=== PATIENT | male | born 1955 | race Caucasian/White ===

== ENCOUNTER 2024-07-12 18:16 | Inpatient (IN) | payer OTHER ==
[~2024-07-12] VITALS: Ht 175.3 cm; Wt 70.9 kg
[2024-07-12 19:21] LABS: BASOPHILS % 0.8 % (0.0-2.0); EOSINOPHILS % 4.2 % (0.0-5.0); HEMATOCRIT. 33.5 % (42.0-52.0); HEMOGLOBIN. 10.4 g/dL (14.0-18.0); LYMPHOCYTES % 14.9 % (20.0-50.0); MEAN CORPUSCULAR HEMOGLOBIN 28.7 pg (28.0-32.0); MEAN CORPUSCULAR HGB CONC 31.1 g/dL (31.0-37.0); MEAN CORPUSCULAR VOLUME 92.1 fL (80.0-94.0); MEAN PLATELET VOLUME 8.1 fl (7.4-10.4); MONOCYTES % 12.8 % (2.0-8.0); NEUTROPHILS % 67.3 % (40.0-76.0); PLATELET 203 x1000/uL (130-400); RED BLOOD CELL COUNT 3.63 mill/uL (4.7-6.1); RED CELL DISTRIBUTION WIDTH 19.1 % (11.6-14.6); WHITE BLOOD COUNT 4.1 x1000/uL (4.5-11.0)
[2024-07-12 19:25] LABS: CHLORIDE 118 mEq/L (98-107); POTASSIUM 4.6 mEq/L (3.5-5.1); SODIUM 143 mEq/L (136-145)
[2024-07-12 19:26] LABS: CALCIUM 8.5 mg/dL (8.7-10.4); CARBON DIOXIDE 18 mEq/L (21-32); INR 1.1; PROTHROMBIN TIME 11.7 sec (9.6-11.0)
[2024-07-12 19:31] LABS: CREATININE 2.3 mg/dL (0.6-1.3); GLUCOSE 93 mg/dL (70-105); UREA NITROGEN BLOOD 55 mg/dL (9-23)
[2024-07-12 19:33] LABS: ALANINE AMINOTRANSFERASE 14 IU/L (10-49); ALBUMIN 3.5 g/dL (3.2-4.8); ASPARTATE AMINOTRANSFERASE 22 IU/L (<34); BILIRUBIN DIRECT 0.2 mg/dL (<=3.0); BILIRUBIN TOTAL 0.5 mg/dL (0.1-1.0); CREATINE KINASE 117 IU/L (46-171); PROTEIN TOTAL 5.9 g/dL (6.0-8.3); TROPONIN I HIGH SENSITIVITY 45 ng/L (3.0-53)
[2024-07-12 19:59] LABS: ETHANOL BLOOD < 10 mg/dL (<10)
[2024-07-12] MEDS: HYDRALAZINE 20MG/ML VIAL IV ONE (20:12)
[2024-07-12] MEDS: SODIUM CHLORIDE 0.9% 250 ML IV ONE (20:14)
[2024-07-12 22:03] LABS: CLARITY URINE CLOUDY (CLEAR); COLOR URINE YELLOW (YELLOW); GLUCOSE URINE 2+ (NEGATIVE); KETONES URINE NEGATIVE (NEGATIVE); LEUKOCYTE ESTERASE URINE NEGATIVE (NEGATIVE); NITRITE URINE NEGATIVE (NEGATIVE); OCCULT BLOOD URINE NEGATIVE (NEGATIVE); PROTEIN URINE 4+ (NEGATIVE)
[2024-07-12 22:10] LABS: *AMPHETAMINES SCREEN URINE NEGATIVE (NEGATIVE); *BARBITURATES SCREEN URINE NEGATIVE (NEGATIVE); *BENZODIAZEPINES SCREEN URINE NEGATIVE (NEGATIVE); *COCAINE SCREEN URINE NEGATIVE (NEGATIVE); METHADONE URINE SCREEN NEGATIVE (NEGATIVE)
[2024-07-12 22:11] LABS: CANNABINOID URINE SCREEN NEGATIVE (NEGATIVE); ECSTASY MDMA SCREEN URINE NEGATIVE (NEGATIVE); OPIATES URINE SCREEN NEGATIVE (NEGATIVE); PHENCYCLIDINE URINE SCREEN NEGATIVE (NEGATIVE)
[2024-07-12 22:12] LABS: BACTERIA URINE 1+; RBC URINE 0-2 /hpf (0-2); SQUAMOUS EPITHELIAL CELL URINE 1+ /lpf (RARE/1+); WBC URINE 0-2 /hpf (0-2)
[2024-07-13] VITALS (11 sets, daily range): BP systolic 149–183; BP diastolic 58–84; PULSE 60–87; RESP 16–20; TEMP 35.8362–37.00296; O2SAT 98–100
[2024-07-13] MEDS: IOHEXOL-350 100 ML BOTTLE ONE (00:11)
[2024-07-13] MEDS: DEXT 5%/0.45% NACL 1000ML 1,000 ML IV SCH (01:15)
[2024-07-13] MEDS ORDERED: DEXTROSE 50% WATER 50ML SYRINGE IV PRN (01:15)
[2024-07-13] MEDS ORDERED: ATROPINE SULFATE 1MG/10ML SYR IV PRN (02:45)
[2024-07-13] MEDS: BLOOD SUGAR DIAGNOSTIC STRIP TEST SCH (04:11)
[2024-07-13] MEDS: HYDRALAZINE 20MG/ML VIAL IV PRN (04:45)
[2024-07-13] MEDS: FUROSEMIDE 40MG/4ML VIAL IVP SCH ×2 (05:36→14:13)
[2024-07-13] MEDS: HYDRALAZINE HCL 25MG TABLET PO SCH (05:56)
[2024-07-13 06:04] LABS: BG BASE EXCESS -12.1 mmol/L (-2.0-3.0); BG CARBOXYHEMOGLOBIN 0.1 % (0.5-1.5); BG DEOXYHEMOGLOBIN 0.7 % (0.0-5.0); BG FRACTION INSPIRED OXYGEN 40; BG HCO3 ACT 14.2 mmol/L (21.0-28.0); BG METHEMOGLOBIN 0.3 % (0.5-1.5); BG OXYGEN SATURATION 99.3 % (94.0-98.0); BG OXYHEMOGLOBIN 98.9 % (94.0-98.0); BG PCO2 33.8 mmHg (35.0-48.0); BG PH 7.241 (7.350-7.450); BG PO2 181.1 mmHg (83.0-108.0); BG SAMPLE SITE RIGHT RADIAL; BG TOTAL HEMOGLOBIN 10.6 g/dL (13.5-17.5); BG VENT MODE NASAL CANNULA
[2024-07-13] MEDS: SODIUM BICARBONATE 100 MEQ in DEXTROSE 5% WATER 900 ML IV SCH (07:12)
[2024-07-13] MEDS: SODIUM BICARBONATE 8.4% 50MEQ/50ML SYR IV NR ×2 (07:12→18:41)
[2024-07-13] MEDS: HEPARIN 5000 UNITS/ML VIAL SUBCUT SCH (09:55)
[2024-07-13] MEDS: PANTOPRAZOLE 40MG DR TABLET PO SCH (09:56)
[2024-07-13 13:17] LABS: BG BASE EXCESS -11.5 mmol/L (-2.0-3.0); BG CARBOXYHEMOGLOBIN 0.1 % (0.5-1.5); BG DEOXYHEMOGLOBIN 1.2 % (0.0-5.0); BG FRACTION INSPIRED OXYGEN 36; BG HCO3 ACT 15.5 mmol/L (21.0-28.0); BG METHEMOGLOBIN 0.3 % (0.5-1.5); BG OXYGEN SATURATION 98.8 % (94.0-98.0); BG OXYHEMOGLOBIN 98.4 % (94.0-98.0); BG PCO2 38.9 mmHg (35.0-48.0); BG PH 7.218 (7.350-7.450); BG PO2 147.5 mmHg (83.0-108.0); BG SAMPLE SITE RIGHT RADIAL; BG TOTAL HEMOGLOBIN 10.8 g/dL (13.5-17.5); BG VENT MODE NASAL CANNULA
[2024-07-13 13:23] LABS: HEMATOCRIT. 31.7 % (42.0-52.0); MEAN CORPUSCULAR HEMOGLOBIN 28.8 pg (28.0-32.0); MEAN CORPUSCULAR HGB CONC 31.5 g/dL (31.0-37.0); MEAN CORPUSCULAR VOLUME 91.4 fL (80.0-94.0); MEAN PLATELET VOLUME 8.1 fl (7.4-10.4); PLATELET 182 x1000/uL (130-400); RED BLOOD CELL COUNT 3.47 mill/uL (4.7-6.1); RED CELL DISTRIBUTION WIDTH 18.8 % (11.6-14.6); WHITE BLOOD COUNT 5.7 x1000/uL (4.5-11.0)
[2024-07-13 13:24] LABS: DIFFERENTIAL COMMENT 1
[2024-07-13 13:31] LABS: CARBON DIOXIDE 16 mEq/L (21-32); CHLORIDE 116 mEq/L (98-107); POTASSIUM 4.1 mEq/L (3.5-5.1); SODIUM 144 mEq/L (136-145)
[2024-07-13 13:32] LABS: CALCIUM 8.9 mg/dL (8.7-10.4)
[2024-07-13 13:36] LABS: CREATININE 2.3 mg/dL (0.6-1.3); GLUCOSE 159 mg/dL (70-105); IRON 32 ug/dL (65-175)
[2024-07-13 13:37] LABS: TRIGLYCERIDE 68 mg/dL (0-150); UREA NITROGEN BLOOD 59 mg/dL (9-23); VITAMIN B12 SERUM 1530 pg/mL (211-911)
[2024-07-13 13:38] LABS: LDL CHOLESTEROL 37 mg/dL (5-100)
[2024-07-13 13:39] LABS: CHOLESTEROL 113 mg/dL (<200); HDL CHOLESTEROL 55 mg/dL (>55); TOTAL IRON BINDING CAPACITY 156 ug/dl (250-425)
[2024-07-13 13:40] LABS: THYROID STIMULATING HORMONE 2.28 uIU/mL (0.55-4.78)
[2024-07-13] MEDS: ASPIRIN 81MG TABLET PO SCH (13:45)
[2024-07-13] MEDS: THIAMINE HCL 200 MG in SODIUM CHLORIDE 0.9% 98 ML IV SCH (13:55)
[2024-07-13] MEDS: CEFTRIAXONE 1GM/50ML 50 ML IV SCH (13:55)
[2024-07-13] MEDS: ATORVASTATIN CALCIUM 40MG TABLET PO SCH (20:39)
[2024-07-13 21:37] LABS: AMMONIA 27 uMol/L (<32)
[2024-07-13] MEDS: IPRATROPIUM/ALBUTEROL 0.5-3(2.5)MG/3ML NEB HHN SCH (21:41)
[2024-07-14] VITALS (17 sets, daily range): BP systolic 135–179; BP diastolic 67–89; PULSE 72–98; RESP 16–20; TEMP 36.114–36.6696; O2SAT 95–100
[2024-07-14 06:35] LABS: POTASSIUM 3.6 mEq/L (3.5-5.1)
[2024-07-14 06:36] LABS: CALCIUM 8.9 mg/dL (8.7-10.4)
[2024-07-14 06:41] LABS: CREATININE 2.3 mg/dL (0.6-1.3)
[2024-07-14 06:56] LABS: HEMOGLOBIN. 9.4 g/dL (14.0-18.0); MEAN CORPUSCULAR HEMOGLOBIN 29.7 pg (28.0-32.0); MEAN CORPUSCULAR HGB CONC 33.5 g/dL (31.0-37.0); MEAN CORPUSCULAR VOLUME 88.6 fL (80.0-94.0); PLATELET 177 x1000/uL (130-400); RED BLOOD CELL COUNT 3.16 mill/uL (4.7-6.1); RED CELL DISTRIBUTION WIDTH 18.2 % (11.6-14.6); WHITE BLOOD COUNT 6.5 x1000/uL (4.5-11.0)
[2024-07-14 07:09] LABS: DIFFERENTIAL COMMENT 1
[2024-07-14 07:36] LABS: ANISOCYTOSIS 2+; PLATELET ESTIMATE NORMAL
[2024-07-14] MEDS: ENOXAPARIN 40MG/0.4ML SYR SUBCUT SCH (10:31)
[2024-07-14 10:44] LABS: ANISOCYTOSIS 2+; PLATELET ESTIMATE NORMAL
[2024-07-14] MEDS: HEPARIN 1000 UNITS/ML 10ML ONE (10:48)
[2024-07-14] MEDS: LIDOCAINE HCL 1% 10 MG/ML 10ML VIAL ONE (10:48)
[2024-07-14 17:14] LABS: HEPATITIS B SURFACE AB < 3.1 mIU/mL (<10)
[2024-07-14 17:24] LABS: HEPATITIS B SURFACE ANTIGEN NEGATIVE (Negative)
[2024-07-14 17:38] LABS: HIV 1/2 AB P24AG Negative (Negative)
[2024-07-14 17:44] LABS: HEPATITIS A AB IGM NEGATIVE (Negative)
[2024-07-14 17:45] LABS: HEPATITIS B CORE AB IGM NEGATIVE (Negative); HEPATITIS C AB NON REACTIVE (Neg) (Negative)
[2024-07-14] MEDS: METHYLPREDNISOLONE SOD SUCC 40MG/ML (ACT-O-VIAL) IV SCH (18:16)
[2024-07-15] VITALS (14 sets, daily range): BP systolic 122–179; BP diastolic 66–88; PULSE 75–89; RESP 18–20; TEMP 36.3918–37.05852; O2SAT 95–100
[2024-07-15 06:31] LABS: POTASSIUM 3.3 mEq/L (3.5-5.1)
[2024-07-15 06:32] LABS: CALCIUM 8.7 mg/dL (8.7-10.4)
[2024-07-15 06:37] LABS: CREATININE 2.1 mg/dL (0.6-1.3)
[2024-07-15 06:47] LABS: HEMATOCRIT. 27.6 % (42.0-52.0); HEMOGLOBIN. 9.2 g/dL (14.0-18.0); MEAN CORPUSCULAR HEMOGLOBIN 29.4 pg (28.0-32.0); MEAN CORPUSCULAR HGB CONC 33.3 g/dL (31.0-37.0); MEAN CORPUSCULAR VOLUME 88.3 fL (80.0-94.0); MEAN PLATELET VOLUME 8.2 fl (7.4-10.4); PLATELET 189 x1000/uL (130-400); RED BLOOD CELL COUNT 3.13 mill/uL (4.7-6.1); RED CELL DISTRIBUTION WIDTH 17.7 % (11.6-14.6); WHITE BLOOD COUNT 5.6 x1000/uL (4.5-11.0)
[2024-07-15 06:48] LABS: DIFFERENTIAL COMMENT 1
[2024-07-15] MEDS ORDERED: KCL 20MEQ/100ML PREMIX 100 ML IV SCH (08:45)
[2024-07-15] MEDS: POTASSIUM CHLORIDE 40MEQ in DEXT 5% WATER 250ML IV NR (12:23)
[2024-07-15 16:55] LABS: PLATELET ESTIMATE NORMAL
[2024-07-16] VITALS (13 sets, daily range): BP systolic 155–197; BP diastolic 69–98; PULSE 71–94; RESP 16–20; TEMP 36.28068–37.05852; O2SAT 95–100
[2024-07-16 06:33] LABS: POTASSIUM 3.2 mEq/L (3.5-5.1)
[2024-07-16 06:34] LABS: CALCIUM 8.7 mg/dL (8.7-10.4)
[2024-07-16 06:39] LABS: CREATININE 2.1 mg/dL (0.6-1.3)
[2024-07-16 06:59] LABS: BASOPHILS % 0.3 % (0.0-2.0); EOSINOPHILS % 0.1 % (0.0-5.0); HEMATOCRIT. 26.3 % (42.0-52.0); HEMOGLOBIN. 8.7 g/dL (14.0-18.0); LYMPHOCYTES % 11.2 % (20.0-50.0); MEAN CORPUSCULAR HGB CONC 32.9 g/dL (31.0-37.0); MEAN PLATELET VOLUME 7.9 fl (7.4-10.4); MONOCYTES % 11.8 % (2.0-8.0); NEUTROPHILS % 76.6 % (40.0-76.0); PLATELET 193 x1000/uL (130-400); RED BLOOD CELL COUNT 2.99 mill/uL (4.7-6.1); RED CELL DISTRIBUTION WIDTH 17.7 % (11.6-14.6); WHITE BLOOD COUNT 5.8 x1000/uL (4.5-11.0)
[2024-07-16] MEDS ORDERED: KCL 20MEQ/100ML PREMIX 100 ML IV SCH (09:15)
[2024-07-16] MEDS: POTASSIUM CHLORIDE 40MEQ in DEXT 5% WATER 250ML IV NR (12:51)
[2024-07-17] VITALS (12 sets, daily range): BP systolic 123–182; BP diastolic 60–90; PULSE 76–92; RESP 16–22; TEMP 36.28068–37.16964; O2SAT 18–100
[2024-07-17 05:55] LABS: BASOPHILS % 0.1 % (0.0-2.0); EOSINOPHILS % 0.1 % (0.0-5.0); HEMATOCRIT. 25.9 % (42.0-52.0); HEMOGLOBIN. 8.5 g/dL (14.0-18.0); LYMPHOCYTES % 9.6 % (20.0-50.0); MEAN CORPUSCULAR HGB CONC 32.9 g/dL (31.0-37.0); MEAN CORPUSCULAR VOLUME 88.2 fL (80.0-94.0); MEAN PLATELET VOLUME 7.7 fl (7.4-10.4); MONOCYTES % 10.2 % (2.0-8.0); PLATELET 185 x1000/uL (130-400); RED BLOOD CELL COUNT 2.94 mill/uL (4.7-6.1); RED CELL DISTRIBUTION WIDTH 17.3 % (11.6-14.6); WHITE BLOOD COUNT 6.5 x1000/uL (4.5-11.0)
[2024-07-17 06:11] LABS: POTASSIUM 3.3 mEq/L (3.5-5.1)
[2024-07-17 06:13] LABS: CALCIUM 8.7 mg/dL (8.7-10.4)
[2024-07-17 06:17] LABS: CREATININE 2.1 mg/dL (0.6-1.3)
[2024-07-18] VITALS (14 sets, daily range): BP systolic 122–196; BP diastolic 64–101; PULSE 72–99; RESP 16–20; TEMP 36.114–36.78072; O2SAT 96–100
[2024-07-18 06:57] LABS: POTASSIUM 3.4 mEq/L (3.5-5.1)
[2024-07-18 06:59] LABS: CALCIUM 8.6 mg/dL (8.7-10.4)
[2024-07-18 07:03] LABS: CREATININE 2.2 mg/dL (0.6-1.3)
[2024-07-18 09:11] LABS: COMPLEMENT C3 112 mg/dL (82-167); COMPLEMENT C4 33 mg/dL (12-38)
[2024-07-18 10:28] LABS: BG BASE EXCESS 1.5 mmol/L (-2.0-3.0); BG CARBOXYHEMOGLOBIN 0.7 % (0.5-1.5); BG DEOXYHEMOGLOBIN 2.4 % (0.0-5.0); BG HCO3 ACT 25.7 mmol/L (21.0-28.0); BG METHEMOGLOBIN 0.3 % (0.5-1.5); BG OXYGEN SATURATION 97.6 % (94.0-98.0); BG OXYHEMOGLOBIN 96.6 % (94.0-98.0); BG PCO2 38.9 mmHg (35.0-48.0); BG PH 7.438 (7.350-7.450); BG PO2 94.8 mmHg (83.0-108.0); BG SAMPLE SITE RIGHT BRACHIAL; BG TOTAL HEMOGLOBIN 9.6 g/dL (13.5-17.5); BG VENT MODE ROOM AIR
[2024-07-18 13:10] LABS: ANTI-NUCLEAR ANTIBODIES DIRECT Negative (Negative)
[2024-07-18] MEDS: AMLODIPINE 5MG TABLET PO SCH (22:03)
[2024-07-19] VITALS (8 sets, daily range): BP systolic 122–175; BP diastolic 69–97; PULSE 74–85; RESP 18–20; TEMP 36.16956–36.83628; O2SAT 97–100
[2024-07-19] MEDS: INSULIN LISPRO 100 UNITS/ML SUBCUT SCH (06:03)
[2024-07-19] MEDS ORDERED: CLONIDINE 0.1MG TABLET PO PRN (15:15)
[2024-07-19] MEDS: INFLUENZA VACCINE 05/PF 0.5 ML SYRINGE IM ONE (17:31)
== END 2024-07-19 18:45 | disposition home or self-care (01) | DRG 637 ==
LOC: ER 18:16 → 5WST 21:13 → 7WST 07-13 08:46
PROVIDERS: ADMIT Internal Medicine; ATTEND Internal Medicine
PROC: 05HN33Z Insertion of Infusion Device into Left Internal Jugular Vein, Percutaneous Approach (ICD-10-PCS; principal; 2024-07-14)
PROC: B544ZZA Ultrasonography of Left Jugular Veins, Guidance (ICD-10-PCS; 2024-07-14)
PROC: 5A1D70Z Performance of Urinary Filtration, Intermittent, Less than 6 Hours Per Day (ICD-10-PCS; 2024-07-14)
PROC: 5A1D70Z Performance of Urinary Filtration, Intermittent, Less than 6 Hours Per Day (ICD-10-PCS; 2024-07-15)
PROC: 4A00X4Z Measurement of Central Nervous Electrical Activity, External Approach (ICD-10-PCS; 2024-07-17)
PROC: 5A1D70Z Performance of Urinary Filtration, Intermittent, Less than 6 Hours Per Day (ICD-10-PCS; 2024-07-18)
DX: E11.649 Type 2 diabetes mellitus with hypoglycemia without coma (principal); G93.41 Metabolic encephalopathy; J96.90 Respiratory failure, unspecified, unspecified whether with hypoxia or hypercapnia; E87.20 Acidosis, unspecified; I13.0 Hypertensive heart and chronic kidney disease with heart failure and stage 1 through stage 4 chronic kidney disease, or unspecified chronic kidney disease; L97.828 Non-pressure chronic ulcer of other part of left lower leg with other specified severity; L97.818 Non-pressure chronic ulcer of other part of right lower leg with other specified severity; J90 Pleural effusion, not elsewhere classified; Z20.822 Contact with and (suspected) exposure to COVID-19; N17.0 Acute kidney failure with tubular necrosis; D64.9 Anemia, unspecified; E11.22 Type 2 diabetes mellitus with diabetic chronic kidney disease; I50.9 Heart failure, unspecified; N18.9 Chronic kidney disease, unspecified; E78.00 Pure hypercholesterolemia, unspecified; F10.21 Alcohol dependence, in remission; K74.60 Unspecified cirrhosis of liver; H40.9 Unspecified glaucoma; R80.9 Proteinuria, unspecified; R62.7 Adult failure to thrive; S90.822A Blister (nonthermal), left foot, initial encounter; Z68.23 Body mass index [BMI] 23.0-23.9, adult; X58.XXXA Exposure to other specified factors, initial encounter; Y93.89 Activity, other specified; Y92.89 Other specified places as the place of occurrence of the external cause; Y99.8 Other external cause status
CPT/HCPCS: 36415; 36556; 36600; 70496; 70498; 71045; 72170; 76604; 76700; 76770; 76937; 80048; 80061; 80076; 80305; 80320; 81003; 82140; 82375; 82550; 82607; 82805; 82962; 83036; 83540; 83550; 83605; 83880; 84145; 84443; 84484; 85025; 86038; 86160; 86705; 86706; 86709; 86850; 86900; 87340; 87426; 87804; 90686; 90935; 93005; 93306; 94070; 94640; 94664; 95816; 97116; 97162; 97530; 98960; 99285; C1752; J0360; J0696; J1644; J1650; J1815; J1940; J2920; J3411; J3480; J3490; J7050; J7060; J7070; Q9967; G0480